=== PATIENT | female | born 1975 | race Caucasian/White ===

== ENCOUNTER 2020-03-05 23:49 | Emergency (ER) | payer OTHER ==
[~2020-03-05] VITALS: Ht 170.2 cm; Wt 160.1 kg
[2020-03-05 23:58] VITALS: Ht 170.2 cm; Wt 160.1 kg
[2020-03-06 02:23] VITALS: BP 148/89
== END 2020-03-06 02:14 | disposition home or self-care (01) ==
LOC: ED 23:49
DX: L03.115 Cellulitis of right lower limb (principal); E11.9 Type 2 diabetes mellitus without complications; Z88.0 Allergy status to penicillin; Z88.1 Allergy status to other antibiotic agents
CPT/HCPCS: 82962; 90715